=== PATIENT | female | born 1950 | race Caucasian/White ===

== ENCOUNTER → 2020-06-25 | Outpatient (CLI) | payer MEDICARE, OTHER ==
--- NOTE | 2020-06-25 11:34 | Diagnostic Imaging Report ---
PROCEDURE: MR imaging of the brain without contrast. TECHNIQUE: Multiplanar, multisequence MR imaging of the brain was performed without contrast. INDICATION: Heaviness in the left arm and left leg as well as headache. No prior studies are available for comparison. FINDINGS: Ventricular size and sulcal pattern are appropriate for the patient's age. No sulcal effacement or midline shift is detected. No acute intra-axial or extra-axial hemorrhage is detected. The normal expected flow-voids within the carotid siphons are seen. No diffusion restriction is identified to suggest acute ischemia. Corpus callosum is unremarkable. The sella and parasellar structures are unremarkable. IMPRESSION: Unremarkable noncontrast MRI of the brain. No acute intracranial process is identified. Dictated by: Dictated on workstation # [id number]
== END ==
LOC: RAD 10:15
PROVIDERS: ATTEND Physician Assistant
DX: R51 Headache (principal); M54.2 Cervicalgia; M54.5 Low back pain; R20.0 Anesthesia of skin
CPT/HCPCS: 70551

== ENCOUNTER → 2020-06-28 | Outpatient (CLI) | payer MEDICARE, OTHER ==
--- NOTE | 2020-06-28 10:23 | Diagnostic Imaging Report ---
PROCEDURE: MRI lumbar spine. TECHNIQUE: Multiplanar, multisequence MRI of the lumbar spine was performed without contrast. INDICATION: Back pain. FINDINGS: The alignment of the lumbar spine is normal. The vertebral body heights are well-maintained. There is no spondylolysis or spondylolisthesis. No fractures are identified. Conus medullaris seen at L1 is normal in appearance. At T12-L1, there is facet disease and thickening of ligamentum flavum. There is no significant spinal or neural foraminal encroachment. At L1-L2, there is loss of disc height and signal intensity. There is mild annular bulging. There is some facet disease and thickening of ligamentum flavum. There is slight effacement of ventral thecal sac and mild bilateral neural foraminal encroachment. At L2-L3, there is slight loss of disc height and signal intensity. There is some facet disease. There is slight effacement of ventral thecal sac and minimal neural foraminal encroachment. At L3-L4, there is loss of disc height and signal intensity. There is some facet disease and thickening of ligamentum flavum. There is mild central spinal stenosis and mild bilateral neural foraminal encroachment. At L4-L5, there is annular bulging, facet disease and thickening of the ligamentum flavum. There is moderate spinal stenosis with encroachment upon the lateral recess bilaterally. There is mild bilateral neural foraminal encroachment. At L5-S1, there is mild annular bulging and mild facet disease. There is no significant spinal or neural foraminal encroachment. The aorta is nonaneurysmal. Kidneys are normal in appearance. IMPRESSION: Mild lumbar spondylosis and degenerative disc disease as detailed above. Dictated by: Dictated on workstation # [id number]
--- NOTE | 2020-06-28 10:25 | Diagnostic Imaging Report ---
PROCEDURE: MR imaging cervical spine without contrast. TECHNIQUE: Multiplanar, multisequence MR imaging of the cervical spine was performed without contrast. INDICATION: Left arm heaviness FINDINGS: There is some straightening of the normal cervical lordosis. Vertebral body heights are well-maintained. The prevertebral soft tissues are within normal limits. Posterior fossa is unremarkable. Visualized portions of the spinal cord are normal signal intensity morphology. At C2-C3 there is no spinal neural foraminal encroachment. At C3-C4 there is no spinal or neural foraminal encroachment At C4-C5 there is loss of disc height and signal intensity. Some annular bulging and bilateral uncovertebral joint hypertrophy. Moderate spinal stenosis and at least moderate bilateral foraminal encroachment. C5-C6 annular bulging and bilateral uncovertebral joint hypertrophy. There is again moderate spinal stenosis and at least moderate bilateral neural foraminal encroachment. At C6-C7 there is some annular bulging and left uncovertebral joint hypertrophy. There is mild spinal stenosis and mild left neural foraminal encroachment. At C7-T1 there is no spinal neural foraminal encroachment. IMPRESSION: Lower cervical spondylosis and degenerative disease as described above Dictated by: Dictated on workstation # [id number]
== END ==
LOC: RAD 09:09
PROVIDERS: ATTEND Physician Assistant
DX: M47.817 Spondylosis without myelopathy or radiculopathy, lumbosacral region (principal); M51.27 Other intervertebral disc displacement, lumbosacral region; M51.36 Other intervertebral disc degeneration, lumbar region; M48.061 Spinal stenosis, lumbar region without neurogenic claudication; M50.321 Other cervical disc degeneration at C4-C5 level; M50.221 Other cervical disc displacement at C4-C5 level; M48.02 Spinal stenosis, cervical region; M47.812 Spondylosis without myelopathy or radiculopathy, cervical region
CPT/HCPCS: 72141; 72148

== ENCOUNTER → 2020-09-16 | Outpatient (CLI) | payer MEDICARE, OTHER ==
--- NOTE | 2020-09-16 09:16 | Diagnostic Imaging Report ---
PROCEDURE: US Hepatic (Liver). TECHNIQUE: Multiple real-time grayscale images were obtained over the right upper quadrant in various projections. INDICATION: Elevated liver enzymes. Liver is normal in size at 15.3 cm. No discrete liver mass is detected. Portal vein is patent and show normal direction of flow. Gallbladder is dilated at 10.3 x 3.3 x 4.5 cm. No stones are seen. There is no wall thickening or pericholecystic fluid. There is no biliary ductal dilatation. Pancreas unremarkable. Aorta is nonaneurysmal. IVC is patent. Right kidney is without calculi or hydronephrosis. There is no ascites. IMPRESSION: 1. Gallbladder hydrops but no definite evidence of cholelithiasis or acute cholecystitis. The study is otherwise unremarkable. Dictated by: Dictated on workstation # [id number]
== END ==
LOC: RAD 07:45
PROVIDERS: ATTEND Internal Medicine
DX: R94.5 Abnormal results of liver function studies (principal)
CPT/HCPCS: 76705

== ENCOUNTER → 2021-03-18 | Outpatient (CLI) | payer MEDICARE, OTHER | LOC: CARD 13:43 | PROVIDERS: ATTEND Nurse Practitioner Family | DX: I10 Essential (primary) hypertension (principal); I35.1 Nonrheumatic aortic (valve) insufficiency; Z86.79 Personal history of other diseases of the circulatory system | CPT/HCPCS: 93306 ==

== ENCOUNTER → 2021-10-25 | Outpatient (CLI) | payer MEDICARE, OTHER ==
[~2021-10-25] MED LIST: CATHETER FLUSH 10 ML SYR IV PRN; HOLD METFORMIN - RECEIVED CONTRAST 20 ML VIAL IV SCH; IOHEXOL 350 MG/ML 100 ML (OMNIPAQUE 350) VIAL IV ONE; NS 100 ML (IVPB) BAG IV ONE
--- NOTE | 2021-10-25 08:57 | Diagnostic Imaging Report ---
EXAMINATION: CT abdomen and pelvis with intravenous contrast. TECHNIQUE: Multiple contiguous axial images were obtained through the abdomen and pelvis after the uneventful administration of intravenous contrast. All CT scans use one or more of the following dose optimizing techniques: automated exposure control, MA and/or KvP adjustment based on patient size and exam type or iterative reconstruction. HISTORY: Abdominal pain COMPARISON: None available. FINDINGS: Limited views of the lower thorax show calcified granuloma in the left lower lobe. The liver is normal without focal lesion. There is no biliary ductal dilation. Gallbladder is normal. Pancreas is normal. Spleen is normal. Adrenal glands are normal. The kidneys are normal. There is no hydronephrosis. Urinary bladder is normal. Bowel is normal in caliber without obstruction or inflammation. No free fluid or air. No abdominal or pelvic lymphadenopathy. Aorta is normal in caliber without aneurysm. There are no suspicious osseus lesions. There is a bone island in L2. IMPRESSION: 1. No acute abnormality in the abdomen or pelvis. Dictated by: Dictated on workstation # [id number]
== END ==
LOC: RAD 08:15
PROVIDERS: ATTEND Internal Medicine
DX: R10.9 Unspecified abdominal pain (principal); R10.2 Pelvic and perineal pain
CPT/HCPCS: 74177

== ENCOUNTER → 2022-07-26 | Outpatient (CLI) | payer MEDICARE, OTHER ==
[~2022-07-26] MED LIST changes: -CATHETER FLUSH 10 ML SYR IV PRN; -HOLD METFORMIN - RECEIVED CONTRAST 20 ML VIAL IV SCH; -IOHEXOL 350 MG/ML 100 ML (OMNIPAQUE 350) VIAL IV ONE; -NS 100 ML (IVPB) BAG IV ONE; +RT-ALBUTEROL SULF 2.5 MG/3 ML PRE-MIX VIAL INH ONE
--- NOTE | 2022-07-26 14:21 | Diagnostic Imaging Report ---
EXAMINATION: Chest 2 view HISTORY: COPD COMPARISON: None available. FINDINGS: Heart size and pulmonary vasculature are normal. The lungs are clear without consolidation, pleural effusion, or pneumothorax. The osseous structures are intact. IMPRESSION: 1. No acute radiographic abnormality in the chest. Dictated by: Dictated on workstation # [id number]
== END ==
LOC: RT 13:03
PROVIDERS: ATTEND Internal Medicine
DX: J44.9 Chronic obstructive pulmonary disease, unspecified (principal)
CPT/HCPCS: 71046; 94060; 94726; 94729

== ENCOUNTER → 2022-12-01 | Outpatient (CLI) | payer MEDICARE, OTHER ==
--- NOTE | 2022-12-01 10:03 | Diagnostic Imaging Report ---
CLINICAL INDICATION: Patient states no injury to back. Patient has chronic back pain that has gotten worse over last few weeks. EXAM: X-ray of the lumbar spine, 3 views. COMPARISON: MRI of the lumbar spine without contrast dated 06/28/2020. FINDINGS: There is dextrorotoscoliosis of the lumbar spine. There is no acute lumbar spine fracture or dislocation. There are degenerative spurs involving the lumbar spine and lower lumbar spine facet arthropathy. There is multilevel loss of disk space height which is moderate to severe at the L4-L5 level which has progressed in interim. Again seen moderate loss of disk space height at the L2-L3 and L3-L4 levels. IMPRESSION: 1: There is no acute lumbar spine fracture or dislocation. 2: There is lumbar spine degenerative disease with dextrorotoscoliosis. Degenerative disease at the L4-L5 level has progressed. Dictated by: Dictated on workstation # [id number]
--- NOTE | 2022-12-01 10:04 | Diagnostic Imaging Report ---
CLINICAL INDICATION: Patient injured back. Patient has chronic back pain that has gotten worse over the last few weeks. EXAM: X-ray of the sacroiliac joints, multiple views. COMPARISON: None. FINDINGS: There is mild sclerosis of the sacroiliac joints. There are small spurs anteriorly involving the sacroiliac joints. Surgical clips are seen in the right pelvis region. There is no acute fracture or dislocation. IMPRESSION: 1: There is no acute fracture or dislocation. 2: There are degenerative changes of the sacroiliac joints. Dictated by: Dictated on workstation # [id number]
== END ==
LOC: RAD 09:20
PROVIDERS: ATTEND Nurse Practitioner Family
DX: M47.816 Spondylosis without myelopathy or radiculopathy, lumbar region (principal); M41.56 Other secondary scoliosis, lumbar region; M46.1 Sacroiliitis, not elsewhere classified
CPT/HCPCS: 72100; 72202

== ENCOUNTER 2022-12-15 10:42 | Outpatient (RCR) | payer MEDICARE, OTHER | END 2022-12-26 | disposition still patient (30) | PROVIDERS: ATTEND Nurse Practitioner Family | DX: M54.40 Lumbago with sciatica, unspecified side (principal); I10 Essential (primary) hypertension ==

== ENCOUNTER 2023-01-05 11:07 | Outpatient (RCR) | payer MEDICARE, OTHER | END 2023-01-05 11:50 | disposition home or self-care (01) | PROVIDERS: ATTEND Nurse Practitioner Family | DX: M54.40 Lumbago with sciatica, unspecified side (principal); I10 Essential (primary) hypertension; R26.89 Other abnormalities of gait and mobility; R53.1 Weakness ==